=== PATIENT | male | born 1965 | race Caucasian/White ===

== ENCOUNTER 2018-02-17 14:19 | Emergency (ER) | payer BC ==
--- NOTE | 2018-02-17 14:30 | ER Report ---
History and Physical Time Seen By MD: 14:30 HPI/ROS CHIEF COMPLAINT: Left shoulder pain HISTORY OF PRESENT ILLNESS: This is a 52-year-old male who presents to the emergency department for left shoulder pain per patient states that about 11:00 today he was working with some bowls, got flipped over a fence and landed on the left posterior aspect of his left shoulder, denies hitting his head, no loss of consciousness, no C-spine tenderness. He states that he did dislocate his shoulder, the personal secretary that was there as well as his who is a nurse or able to reduce the shoulder. Patient states that he has however had pain since then decided to come in for further evaluation. No DEFORMITIES to the shoulder. CMS intact. No bruising. No shortness of breath or chest pain. No nausea vomiting. No recent fevers or chills. REVIEW OF SYSTEMS: Respiratory: No cough, no dyspnea. Cardiovascular: No chest pain, no palpitations. Gastrointestinal: No vomiting, no abdominal pain. Musculoskeletal: As above. Allergies: Coded Allergies: gabapentin (Verified Allergy, Unknown, 02/17/18) ibuprofen (Verified Allergy, Unknown, 02/17/18) ketorolac (Verified Allergy, Unknown, 02/17/18) pregabalin (Verified Allergy, Unknown, 02/17/18) Home Meds Active Scripts Hydrocodone Bit/Acetaminophen (HYDROCODON-ACETAMINOPHEN 5-325) 1 Each Tablet, 1 EACH PO Q4-6H PRN for PAIN, #8 TAB 0 Refills Prov:CHASITY LOUIS OCEANOGRAPHER GEOLOGICAL- 02/17/18 Past Medical/Surgical History The patient has a past medical and surgical history of knee surgery and bi lateral hand surgeries. Reviewed Nurses Notes: Yes Constitutional Vital Sign - Last 24 Hours 02/17/18 14:31 Temp 98.5 Pulse 91 Resp 18 B/P (MAP) 116/76 Pulse Ox 93 O2 Delivery Room Air Physical Exam General Appearance: The patient is alert, has no immediate need for airway protection and no current signs of toxicity. Eyes: Pupils equal and round no injection. Respiratory: Chest is non tender, lungs are clear to auscultation. Cardiac: regular rate and rhythm. Gastrointestinal: Abdomen is soft and non tender, no masses, bowel sounds normal. Musculoskeletal: Neck: Neck is supple and non tender. No C-spine tenderness. Extremities left anterior and posterior shoulder pain along with proximal humerus pain, with palpation, no deformity identified, no crepitus no bruising. Skin: No rashes or lesions. DIFFERENTIAL DIAGNOSIS: After history and physical exam differential diagnosis was considered for fracture, dislocation, contusion. Medical Decision Making [place] [facility] [place]mez [place] : 1965 Visit/Account:[id number] Date of Sevice: 02/17/2018 3 views left shoulder Indication: Injury left shoulder Comparison: X-ray examination July 12, 2016 Findings: Mild, stable degenerative change glenohumeral joint. No fracture or new destructive osseous process. Punctate calcification is near the footprint of the interspinous/supraspinatus tendon. Acromiohumeral interval is within normal limits. Limited views of the left upper lung zone are unremarkable. IMPRESSION: 1. Mild degenerative changes without acute finding Report Dictated By: Nasir Jiménez MD at 02/17/2018 3:56 PM Report E-Signed By: Nasir Jiménez MD at 02/17/2018 3:58 PM WSN:[id number] ED Course/Re-evaluation ED Course The patient was admitted to room. A history and physical were obtained. Differential diagnoses were considered. An x-ray of the left shoulder was negative for any acute osseous abnormalities. I reviewed the imaging results with the patient. The patient was given 5 mg IM morphine, this did seem to help with some has discomfort. The patient has a sling at home that he will use. I did recommend following up with his primary care provider or orthopedist for reevaluation within 4-8 days. The patient had no other questions or concerns at this time and was discharged home. Patient was in agreement with this plan of care. I did give the patient a prescription for hydrocodone. Decision to Disposition Date: Feb 17, 2018 Decision to Disposition Time: 16:08 Depart Departure Latest Vital Signs Vital Signs Date Time Temp Pulse Resp B/P (MAP) Pulse Ox O2 Delivery O2 Flow Rate FiO2 02/17/18 14:31 98.5 91 18 116/76 93 Room Air Impression: Primary Impression: Injury of left shoulder Condition: Improved Disposition: HOME OR SELF-CARE New Scripts Hydrocodone Bit/Acetaminophen (HYDROCODON-ACETAMINOPHEN 5-325) 1 Each Tablet 1 EACH PO Q4-6H PRN for PAIN, #8 TAB 0 Refills Prov: CHASITY LOUIS 02/17/18 Patient Instructions: Contusion in Adults (ED), Shoulder Dislocation (ED), Shoulder Pain (ED) Additional Instructions: There were no acute fractures noted on your X-ray. I would however recommend following up with your primary care provider or ortho when in the next 4-8 days when you return home. Drink plenty of fluids. Get plenty of rest. Be sure to keep the arm in the sling for comfort. Take Ibuprofen or Tylenol as needed for pain. Take the hydrocodone for severe pain. Return to emergency department for any other concerns or worsening symptoms. Problem Qualifiers Primary Impression: Injury of left shoulder Encounter type: initial encounter Qualified Codes: S49.92XA - Unspecified injury of left shoulder and upper arm, initial encounter CHASITY LOUIS Feb 17, 2018 14:30
[2018-02-17 14:31] VITALS: BP 116/76
[2018-02-17] MEDS ORDERED: MORPHINE 10 MG/ML SYR IM ONE (14:40)
--- NOTE | 2018-02-17 16:01 | RADIOLOGY IMAGING REPORT ---
FACILITY: [facility] - [place] PATIENT NAME: Gómez Hernandez : 1965 MR: [id number] V: [id number] EXAM DATE: ORDERING PHYSICIAN: CHASITY LOUIS TECHNOLOGIST: Location: [facility] - [place] Patient: Gómez Hernandez : 1965 Visit/Account:[id number] Date of Sevice: 02/17/2018 3 views left shoulder Indication: Injury left shoulder Comparison: X-ray examination July 12, 2016 Findings: Mild, stable degenerative change glenohumeral joint. No fracture or new destructive osseous process. Punctate calcification is near the footprint of the interspinous/supraspinatus tendon. Acromiohumeral interval is within normal limits. Limited views of the left upper lung zone are unremarkable. IMPRESSION: 1. Mild degenerative changes without acute finding Report Dictated By: Nasir Jiménez MD at 02/17/2018 3:56 PM Report E-Signed By: Nasir Jiménez MD at 02/17/2018 3:58 PM WSN:[id number]
[2018-02-17] MEDS ORDERED: HYDR-385 PO (16:09)
== END 2018-02-17 16:25 | disposition home or self-care (01) ==
LOC: ER 14:30
DX: S49.92XA Unspecified injury of left shoulder and upper arm, initial encounter (principal); M25.512 Pain in left shoulder
CPT/HCPCS: 73030; 96372; 99283; J2270